=== PATIENT | female | born 1945 | race Caucasian/White ===

== ENCOUNTER → 2018-10-27 13:23 | Outpatient (CLI) | payer MEDICARE, OTHER, SELFPAY | PROVIDERS: PCP Family Medicine; Visit Provider Family Medicine | DX: Z78.0 Asymptomatic menopausal state (principal); E07.9 Disorder of thyroid, unspecified; R29.890 Loss of height | CPT/HCPCS: 77080; 77081 ==

== ENCOUNTER → 2018-12-31 15:38 | Outpatient (CLI) | payer MEDICARE, OTHER, SELFPAY ==
--- NOTE | 2018-12-31 | DI.RAD.S_ITS ---
PROCEDURE: XR LUMBAR SPINE 2-3V INDICATIONS: LOW BACK PAIN TECHNIQUE: 3 views of the lumbar spine were acquired. COMPARISON: None. FINDINGS: Bones: 5 [id number] vertebrae are present. There is grade 1 anterolisthesis of L4 on L5. Minimal retrolisthesis of L1 on L2 is also seen. Degenerative endplate changes and bilateral facet arthrosis throughout lumbar spine is noted most prominent at L4-5 and L5-S1 levels. No vertebral body compression fractures. No suspicious bony lesions. Soft tissues: Overlying bowel gas pattern is normal. No suspicious soft tissue calcifications. IMPRESSION: Degenerative disc disease throughout lumbar spine. Minimal retrolisthesis at L1-2 level and grade one anterolisthesis at L4-5 level. No acute compression fracture. Dictated by: Adeel Nino M.D. on 12/31/2018 at 18:03 Approved by: Adeel Nino M.D. on 12/31/2018 at 18:04
== END ==
PROVIDERS: PCP Family Medicine; Visit Provider Family Medicine
DX: M54.5 Low back pain (principal); M51.36 Other intervertebral disc degeneration, lumbar region; M43.16 Spondylolisthesis, lumbar region
CPT/HCPCS: 72100

== ENCOUNTER → 2019-01-08 15:10 | Outpatient (CLI) | payer MEDICARE, OTHER, SELFPAY ==
--- NOTE | 2019-01-08 15:12 | DI.RAD.S_ITS ---
PROCEDURE: XR HAND RT MIN 3V INDICATIONS: Fall, swelling, pain over distal metatarsals and PIP TECHNIQUE: 3 views of the hand(s) acquired. COMPARISON: None. FINDINGS: Bones: No fractures or dislocations. Carpal bones are normally aligned. No suspicious bony lesions. Mild degenerative arthritis involving the triscaphe joint as well as the first MCP, first IP, and second and third DIP joints. Soft tissues: No suspicious soft tissue calcifications. IMPRESSION: No evidence acute bony abnormality of the right hand Dictated by: Juwan Fong M.D. on 01/08/2019 at 15:32 Approved by: Juwan Fong M.D. on 01/08/2019 at 15:34
== END ==
PROVIDERS: PCP Family Medicine; Visit Provider Physician Assistant
DX: S60.221A Contusion of right hand, initial encounter (principal); M79.89 Other specified soft tissue disorders; W19.XXXA Unspecified fall, initial encounter
CPT/HCPCS: 73130

== ENCOUNTER → 2019-03-09 16:16 | Outpatient (CLI) | payer MEDICARE, OTHER, SELFPAY ==
--- NOTE | 2019-03-09 | DI.RAD.S_ITS ---
PROCEDURE: XR HIP W PEL IF DONE LT 2V INDICATIONS: LEFT HIP PAIN TECHNIQUE: AP pelvis with lateral view(s) of the left hip(s). COMPARISON: [facility], XR PELVIS W LATERAL HIP RT, 02/22/2016, 15:13. [facility], CR, PELVIS 1 OR 2 VIEWS, 02/09/2016, 14:43. FINDINGS: Bones: No fractures or dislocations. Pelvic ring appears intact. No suspicious bony lesions. There is a severe left hip joint degeneration. Note is made of right hip arthroplasty with prosthesis in anatomic alignment. Soft tissues: The visualized bowel gas pattern is normal. No suspicious soft tissue calcifications. IMPRESSION: Severe left hip joint degeneration secondary to osteoarthritis. Dictated by: Camila Tovar M.D. on 03/09/2019 at 18:38 Approved by: Camila Tovar M.D. on 03/09/2019 at 18:40
== END ==
PROVIDERS: PCP Family Medicine; Visit Provider Family Medicine
DX: M25.552 Pain in left hip (principal); M16.12 Unilateral primary osteoarthritis, left hip
CPT/HCPCS: 73502

== ENCOUNTER → 2019-09-09 11:13 | Outpatient (CLI) | payer MEDICARE, OTHER, SELFPAY ==
[2019-09-09 11:57] LABS: Bacteria Urine None Seen
[2019-09-09 13:20] LABS: Appearance Urine UA CLEAR; Bilirubin Urine UA NEGATIVE (NEGATIVE); Color Urine UA YELLOW; Glucose Urine UA NEGATIVE (Negative); Ketones Urine UA NEGATIVE (NEGATIVE); Leukocyte Esterase Urine UA NEGATIVE (NEGATIVE); Nitrite Urine UA NEGATIVE (Negative); Occult Blood Urine UA 1+ (Negative); Protein Urine UA NEGATIVE (Negative); Specific Gravity Urine UA 1.015 (1.000-1.035); Urobilinogen Urine UA 0.2 E.U./dL (0.2)
[2019-09-09 13:29] LABS: Add Manual Diff / Slide Review NO; Basophils Absolute Auto 100 /uL (0-100); Basophils Percent Auto 0.8 % (0-2); Eosinophils Absolute Auto 100 /uL (0-450); Eosinophils Percent Auto 1.4 % (2-4); Hematocrit 43.2 % (36-46); Hemoglobin 14.7 g/dL (12.0-16.0); Lymphocytes Absolute Auto 2500 /uL (1100-4500); Lymphocytes Percent Auto 28.1 % (25-40); Mean Corpuscular HGB Conc 33.9 % (30-36); Mean Corpuscular Hemoglobin 28.4 PG (26-34); Mean Corpuscular Volume 83.7 fL (80-100); Monocytes Absolute Auto 800 /uL (0-900); Neutrophils Absolute Auto 5400 /uL (1500-7000); Neutrophils Percent Auto 60.7 % (50-75); Platelet Count 282 X10^3/uL (150-400); Red Blood Cell Count 5.16 X10^6/uL (4.0-5.2); Red Cell Distribution Width 15.3 % (11.6-14.8); White Blood Cell Count 8.9 X10^3/uL (4.5-11.0)
[2019-09-09 13:34] LABS: Hemoglobin A1C% w Est Avg Glu 6.1 % (4.0-6.0)
[2019-09-09 13:41] LABS: Culture Indicated Urine Cult Not Indicated; RBC Urine 1-5/HPF (0-5/HPF); Squamous Epithelial Cell Urine 0-1 /HPF (0-5/HPF); WBC Urine 0-1/HPF (0-5/HPF)
[2019-09-09 13:44] LABS: BUN Creatinine Ratio 30.9 (6-22); Blood Urea Nitrogen 21 mg/dL (7-17); Calcium 10.1 mg/dL (8.4-10.2); Carbon Dioxide 22 mmol/L (22-32); Chloride 105 mmol/L (98-107); Estimated Glomerular Filt Rate > 60.0 mL/min (>60); Glucose 102 mg/dL (80-110); HEMOLYSIS < 15 (0-50); Potassium 4.5 mmol/L (3.4-5.1); Sodium 138 mmol/L (137-145)
== END ==
PROVIDERS: PCP Family Medicine; Referring Provider Orthopaedic Surgery; Visit Provider Orthopaedic Surgery
DX: Z01.818 Encounter for other preprocedural examination (principal); Z01.812 Encounter for preprocedural laboratory examination; R73.9 Hyperglycemia, unspecified; N39.0 Urinary tract infection, site not specified
CPT/HCPCS: 36415; 80048; 81001; 83036; 85025; 93005

== ENCOUNTER → 2019-10-12 10:44 | Outpatient (CLI) | payer MEDICARE, OTHER, SELFPAY ==
[2019-10-14 00:19] LABS: COVID19 Sendout Not Detected (Not Detect)
== END ==
PROVIDERS: PCP Family Medicine; Visit Provider Nurse Practitioner
DX: Z01.812 Encounter for preprocedural laboratory examination (principal)
CPT/HCPCS: 87635

== ENCOUNTER 2019-10-15 06:11 | Day surgery (SDC) | payer MEDICARE, OTHER, SELFPAY ==
[2019-10-08 09:38] VITALS: BMI 35.0
[2019-10-15] VITALS (16 sets, daily range): BP systolic 112–171; BP diastolic 57–92; PULSE 65–79; RESP 8–17; TEMP 36.1–37.1; O2SAT 90–100; BMI 34.3
--- NOTE | 2019-10-15 | DI.RAD.S_ITS ---
PROCEDURE: XR PELVIS 1-2V INDICATIONS: left total hip inter op TECHNIQUE: Intra-operative view of the pelvis and hip acquired. COMPARISON: [facility], , PELVIS 1 OR 2 VIEWS, 02/09/2016, 14:43. FINDINGS: Bones: Intraoperative devices prior to placement of arthroplasty prostheses are in expected positions. No fractures or suspicious bony lesions. Soft tissues: Overlying surgical retractors are present, along with other intraoperative changes. IMPRESSION: Normal alignment established in preparation for placement of final components of left total hip arthroplasty. Dictated by: Emery Levi M.D. on 10/15/2019 at 10:28 Approved by: Emery Levi M.D. on 10/15/2019 at 10:28
--- NOTE | 2019-10-15 06:34 | DI.RAD.S_ITS ---
PROCEDURE: XR HIP W PEL IF DONE LT 2V INDICATIONS: surgery portable TECHNIQUE: AP pelvis and lateral view of the left hip acquired. COMPARISON: [facility], CR, XR PELVIS WITH BILATERAL LATERAL HIPS, 09/09/2019, 10:17. [facility], CR, XR PELVIS 1-2V, 10/15/2019, 9:05. [facility], CR, XR HIP W PEL IF DONE LT 2V, 03/09/2019, 16:26. FINDINGS: Bones: Patient is status post left hip arthroplasty, with hardware components in expected positions. The hip joint appears congruent. The visualized bony structures appear intact. Note is made of prior right hip arthroplasty. Soft tissues: Overlying postoperative changes are noted. No suspicious soft tissue densities. IMPRESSION: Left hip arthroplasty with prosthesis in anatomic alignment. Dictated by: Camila Tovar M.D. on 10/15/2019 at 11:04 Approved by: Camila Tovar M.D. on 10/15/2019 at 11:05
[2019-10-15] MEDS: VANCOMYCIN 1,000 MG/200 ML PIGGYBACK 200 MG IV (07:07)
[2019-10-15] MEDS: CELECOXIB 200 MG CAPSULE PO (07:08)
[2019-10-15] MEDS: ACETAMINOPHEN 325 MG TABLET 975 MG PO (07:08)
--- NOTE | 2019-10-15 07:33 | P.OP_ITS ---
Operative Date/Time/Diagnoses Date of procedure: 10/15/19 Time of procedure: 07:59 Pre-op diagnosis: left hip OA Post-op diagnosis: same Procedure & Clinicians Procedure: Left total hip arthroplasty posterior approach Same procedure as scheduled: Yes Indications: The patient has had progressively worsening left hip pain with radiographic changes consistent with arthritis. Non-operative management has failed and the patient has requested total hip replacement. The risks, benefits and alternatives to surgery were discussed with the patient prior to proceeding. Risks discussed included, but were not limited to, failure to relieve pain, leg length discrepancy, dislocation, stiffness, infection, nerve damage, deep venous thrombosis, pulmonary embolism, stroke, coma, heart attack, permanent paralysis and , as well as the potential need for eventual revision of the prosthetic. Surgeon: Pushpa Montoya Agricultural Service Technician: Brady Cordova Anesthesia Type: General and Spinal Operative Notes Findings: Severe left hip osteoarthritis, good stability Closure Type: primary Specimen(s): none sent Prosthetic devices, grafts, tissues, transplants, or devices: Montoya and Nephew 50 mm R3 cup, size 5 standard offset anthology, +0 x 32 mm Oxinium head,one 15 mm screw Applied: drain(s) Estimated Blood Loss (mL): 250 Blood products transfused: none Procedure in detail: The patient was seen in the pre-operative area, where the patient identified the left hip as the operative site and this was marked with my initials. The patient received pre-operative antibiotics and was taken to the operating room and placed on the operative table in the right lateral decubitus position after satisfactory anesthesia. A registered phlebotomist part time out? was performed. The left leg was prepared from the ankle to the iliac crest with ChloroPrep in the usual fashion and draped through sterile drapes. The hip was approached through an approximately 20 cm incision centered over the greater trochanter and curving gently posteriorly as it went proximally. This was carried sharply to the fascia cuauhtemoc, which was divided and retracted with a self retaining retractor. The trochanteric bursa was excised with care being ta esha to avoid the sciatic nerve, which was identified and protected throughout the case. The short external rotators were incised and the capsulomuscular flap was raised and tagged for later repair. The hip was dislocated, and a femoral neck osteotomy performed approximately 15 mm above the lesser trochanter. Retractors were placed around the femur. The canal was opened with a box cutting osteotome, followed by a T handled reamer and a lateralizing reamer. The chili pepper broach was then used, followed by sequential broaching until there was good stability of the broach in the femur. Retractors were placed to expose the acetabulum. The labrum and central soft tissues were removed. Reaming was performed initially going up in 2 mm increments, then 1 mm increments until good bite was obtained with an odd sized reamer. The cup 1 mm larger than the last reamer was then inserted using the appropriate anteversion guides. It was further stabilized with a single 15 mm 6.5 mm screw. A trial neutral liner was placed. The broach was placed in the canal. A trial head and neck were then placed and the hip relocated and checked for leg length and stability. An intraoperative film confirmed the component position and no evidence of fracture. The patient was stable in the position of sleep, of squatting, and could be put through a range of motion with 45 degrees internal rotation without dislocation. At 90 degrees flexion, internal rotation to 70 ? was possible before dislocation. This was felt to be satisfactory and the appropriate components were opened, and the trials were removed. The acetabular liner was impacted into position. The final stem was then impacted into the prepared femoral canal. A brief Betadine soak was performed while trialing with head options. The hip was meticulously irrigated with normal saline. Finally the femoral head was impacted onto the stem. The acetabulum was cleared of all material and the hip relocated one final time. The capsulomuscular flap was then repaired to the greater trochanter though an awl hole using the tag sutures. The short external rotators were repaired with a nonabsorbable suture. A deep drain was placed and brought out anteriorly. The fascia cuauhtemoc was closed with Vicryl. The subcutaneous layer was closed with barbed sutures and SteriStrips. An Aquacel Ag dressing was applied and the patient was taken to recovery having tolerated the procedure well. Complications: none Post-operative Condition: stable Disposition: Acute Care Plan for aftercare: The patient will be maintained on a standard total hip replacement protocol with weight bearing as tolerated and posterior hip precautions. The patient will receive Aspirin and sequential compression devices for DVT prophylaxis. The patient will be discharged home when safe for the home environment.
--- NOTE | 2019-10-15 07:33 | PM.PREOP ---
Pre-operative Note COVID-19 COVID-19 status: Negative Interval Note History & Physical reviewed/Exam performed by Physician: Yes Changes to H&P: No
[2019-10-15] MEDS: LACTATED RINGERS 1,000 ML 42 ML IV ×2 (07:41→09:08)
[2019-10-15] MEDS: TRANEXAMIC ACID 1,000 MG VIAL 1000 MG INJ ×2 (08:00→09:48)
[2019-10-15] MEDS: CLINDAMYCIN 900 MG/50 ML PIGGYBACK 50 MG IV (08:07)
--- NOTE | 2019-10-15 08:43 | SUR.OPER ---
Lateral on padded OR bed. Gel axillary roll. Arms secured on padded armboard with pillow supporting top arm. Padded hip positioner braces x4 - anterior and posterior chest and pelvis. Additional gel pad used anterior pelvis. Gel pad under bottom leg from knee to foot and secured with tape over sheet.
[2019-10-15] MEDS: BUPIVACAINE LIPOSOME 266 MG/20 ML VIAL INJ (08:48)
[2019-10-15] MEDS: BUPIVACAINE 0.25% W/ EPI 30 ML VIAL 60 ML INJ (08:49)
[2019-10-15] MEDS: EPINEPHrine 1 MG/ML IRR (08:50)
--- NOTE | 2019-10-15 11:08 | SUR.PHASEI ---
pt transferred to acute care floor in stable condition, vss. pt alert and talking to staff during transport. Bedside report given to Yannick Wilson RN upon arrival to room. Transferred care of pt to RAYMUNDO Wilson at that time.
--- NOTE | 2019-10-15 13:36 | PT.IIE ---
Current Diagnoses Unilateral primary osteoarthritis, left hip (10/15/19) Surgery Performed Operation Date: 10/15/19 07:45 Actual Procedures p Total Hip Arthroplasty(Left) - Pushpa Montoya MD Surgical History (Last Updated 10/08/19 @ 10:15 by Lulu Streeter RN) History of carpal tunnel surgery of right wrist (Acute 01/2016) History of total right hip arthroplasty (Acute 02/09/16) Hx of tonsillectomy (Acute) Medical History (Last Updated 10/08/19 @ 10:15 by Lulu Streeter RN) Anxiety (Acute) Depression (Acute) GERD (gastroesophageal reflux disease) (Acute) HLD (hyperlipidemia) (Acute) Pre-diabetes (Acute) Rheumatic fever (Acute) Physical Therapy Inpatient Evaluation/Re-Eval M1 PT/OT-IP Prior Functional Status Start: 10/15/19 11:49 Freq: NEEDED Status: Active Protocol: Document 10/15/19 13:10 AW (Rec: 10/15/19 13:35 AW [email or web address]) Medical Review Prior Functional Status Medical History Reviewed Yes Diet/Fluid Consistency Regular Communication WNL. Pt is an effective verbal communicator. Mobility and Gait Pt is an independent community ambulator who is able to walk up to 1 mile. Activities of Daily Living and IADL's Pt is mod I to dress herself with sock aid and grain shoveler. In the shower, she uses a shower stool to steady herself in standing. She drives and manages her own medications. Social History Household Members none Living Arrangements House Number of Floors (Floors) One Floor Number of Stairs To Enter/Railing? 3 SHYAM with no railing. Pt states she must descend 4 stairs into the garage with no railing in order to access her laundry. 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 Her daughter and sister have planned to coordinate care so that she will not be alone for at least the first week following discharge. M2 PT-IP Current Condition Start: 10/15/19 11:49 Freq: NEEDED Status: Active Protocol: Document 10/15/19 13:10 AW (Rec: 10/15/19 13:35 AW [email or web address]) Physical Therapy Current Condition Current Condition Evaluation Date 10/15/19 Treatment Diagnosis s/p L NANCY with posterior approach. Onset Date 10/15/19 Precautions Posterior Hip Precautions No Hip Flexion > 90 degrees,No Hip Internal Rotation,No Hip Adduction Weight Bearing Status Weight Bearing Status Weight Bear as Tolerated M3 PT-IP Subjective Start: 10/15/19 11:49 Freq: NEEDED Status: Active Protocol: Document 10/15/19 13:10 AW (Rec: 10/15/19 13:35 AW [email or web address]) Subjective Physical Therapy Visit Type Type Initial Evaluation Visit Start Time 12:29 Visit Stop Time 13:05 Total Visit Minutes 36 Number of ETHNOLOGY TEACHER Visits 0 Physical Therapy Visit Comments Patient Comments Pt would like to [place] [facility] Patient Goals Pt hopes to discharge to her home with family assisting. Therapy Pain Assessment Pain When Pain Assessed During Mobility Pain Present Pain Present Denied Pain M4 PT-IP Mobility and Gait Start: 10/15/19 11:49 Freq: NEEDED Status: Active Protocol: Document 10/15/19 13:10 AW (Rec: 10/15/19 13:35 AW [email or web address]) PT-Bed Mobility Assessment Supine to Sit Supine to Sit Minimal Assistance,1 Person Assistance Scooting Scooting to Edge of Bed Contact Guard Assistance PT-Transfer Assessment Sit to and From Stand Sit to and from Stand Minimal Assistance,1 Person Assistance,Use of Upper Extremities Equipment Transfer Assistive Device Gait Belt,Front Wheeled Walker Orthotic/Prosthetic Devices or Brace: No Transfers Transfer Destination Chair,Bedside Commode Transfer Technique pt ambulated with FWW Transfer Ability Level of Assist Contact Guard Assistance,Use of Upper Extremities Comments Mobility Comments BP in supine was 127/75. SpO2 94% on room air. With HOB flat , pt moved her legs to exit toward her left side and then required min A x 1 at her shoulders to assist to sitting while maintaining posterior precautions. She scooted toward EOB with CGA/tactile cues for upright trunk. Pt was able to sit EOB with and without UE support. BP after two minutes in sitting was 135 /77. Pt stood using FWW min A x 1 and verbal cues for placement of her LLE. She was able to shift weight side to side and to take small marching steps in place with minimal UE weightbearing on the walker. Pt step pivot transferred to the [facility] where she was able to void. She stood min A x 1 to complete her own pericare and then ambulated to the sink CGA. She was able to stand without countertop support to wash her hands. She then ambulated with FWW CGA to the chair where she sat without need for verbal cues while maintaining posterior hip precautions. Pt was positioned in the chair with call light and all needs within reach. She verbalized agreement to use the call light for all mobility needs. Left pt with EXPLOSIVES ENGINEER. Gait Assessment Gait Gait Assistance Required: Contact Guard Assist Distance (Feet) 7 Able to Maintain Weight Bearing Status Yes During Gait Assistive Devices Assistive Device Gait Belt,Front Wheeled Walker Orthotic/Prosthetic Devices or Brace: No Gait Deviations General Gait Pattern Antalgic,Decreased Stride Length,Decreased Feet Clearance,Flexed Trunk,Step-to Gait Factors Limiting Gait Function Factors Limiting Gait Function Decreased Activity Tolerance, Decreased Sensation,Decreased Strength,Limited Range of Motion,Poor Balance Comments Gait Comments See mobility comments. Stair Climbing Assessment Comments Stair Climbing Comments Not assessed. PT-Balance Assessment Sitting Balance and Reactions Static Sitting Balance Ability Normal Dynamic Sitting Balance Ability Normal Standing Balance and Reactions Static Standing Balance Ability Good Dynamic Standing Balance Ability Good Device Used FWW Comments Other Balance Tests/Deviations/Treatment Pt appropriately used the FWW. : She was able to stand at the sink without leaning and without UE support to wash her hands. M5 PT-IP Objective Assessments Start: 10/15/19 11:49 Freq: NEEDED Status: Active Protocol: Document 10/15/19 13:10 AW (Rec: 10/15/19 13:35 AW [email or web address]) Orientation Orientation/Cognition Level of Alertness Alert Orientation Name,Day of Week,Place, Situation Language Function Ability No Deficits Noted Memory Description No Deficits Noted Gross Range of Motion Upper Extremity ROM Assessment Within Functional Limits Lower Extremity ROM Assessment Left Impaired Strength Lower Extremity Strength Assessment Left Impaired Hip 3/5 Knee 4-/5 Ankle 4+/5 Comments Strength Comments RLE grossly 4/5 Coordination Assessment Gross Coordination Gross Coordination WNL Sensation Assessment Sensation Gross Sensation Right LE Impaired,Left LE Impaired Light Touch Impaired Sensation Description Numbness,Tingling Comments Sensation Comments Pt reports chronic 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 Muscle Tone Muscle Tone WNL Yes M6 PT-IP Treatment Start: 10/15/19 11:49 Freq: NEEDED Status: Active Protocol: Document 10/15/19 13:10 AW (Rec: 10/15/19 13:35 AW [email or web address]) Physical Therapy Treatment Exercises Exercises Ankle Pumps,Gluteal Sets,Quad Sets,Heel Slides,Supine Hip Abduction Education Education Provided Precautions,Weight Bearing Status,Post-Op Packet,Safety Other Treatments Other Treatment Performed Provided education on role of PT, plan of care, weightbearing status, posterior hip precautions, and safe use of FWW. Also provided education on benefits of cryotherapy, encouraging the patient to use a heavy ice bag ~20 minutes hourly as tolerated. M7 PT-IP Assessment and Plan Start: 10/15/19 11:49 Freq: NEEDED Status: Active Protocol: Document 10/15/19 13:10 AW (Rec: 10/15/19 13:35 AW [email or web address]) PT Summary Assessment and Plan Potential Rehabilitation Potential Good Status of Condition at Evaluation Evolving Summary Impairments Pain,ROM,Strength,Balance, Sensation,Bed Mobility, Transfers,Gait,Activity Tolerance Assessment Summary Donna is a 74 yo woman seen for PT evaluation on POD0 following L NANCY with posterior approach. She is an independent community ambulator at baseline and lives alone. She has arranged for her daughter and her sister to provide live-in assist for at least one week at time of discharge. On evaluation, pt required CGA or min assist for all mobility. PT anticipates she will progress and meet the goals of this plan of care for safe discharge to home with family assist as planned. Goals Bed Mobility Goal Standby Assistance Transfer Goal Standby Assistance,Four Wheeled Walker Gait Goal Standby Assistance,Front Wheel Walker Gait Distance 200 Other Goals - up/down 3 steps with SPC R hand and ASBESTOS BRAKE LINING FINISHER HELPER/min A on left side Days to Meet Goals 3 Frequency of Treatment Frequency Of Treatment Twice a Day Treatment Plan Physical Therapy Treatment Plan Bed Mobility Training,Transfer Training,Gait Training, Therapeutic Exercise,Balance Retraining,Post Op Education, Discharge Planning,Hot or Cold Pack Other Recommendations and Next Treatment ther ex, bed mobility, Focus progress gait training with FWW, stairs when appropriate Recommendations To Nursing Amount of Assist Needed 1 Person Assist Discharge Recommendations PT Discharge Recommendations Home with Assistance, Outpatient PT Transportation Needs at Discharge Private Vehicle
--- NOTE | 2019-10-15 14:06 | CM.DANOTE ---
DCP: Case received, EMR reviewed and met with patient. Introduced self and role. Was able to meet with patient in her room and obtain information regarding her baseline activity level prior to surgery, and her living situation. DCP assessment completed with information currently available. Patient is a 74 year old female who admitted early this morning to the care of the orthopedic team. PCP: Dr. Brabosa. Payer: confirmed: Medicare/[employer]. Patient came to the hospital for a surgical procedure. She had left total hip arthroplasty. Patient has history of osteoarthritis to her left hip. P.T. had been in speaking to patient before this shoe parts caser entered the room. Met with patient in her room. She was sitting up in her recliner next to her bed. She is alert and oriented, pleasant. She resides in [place], and lives alone. She is independent at baseline, driving. She has a cane that she uses on occasion, and also purchased a FWW. She has 3 steps going into the house. Patient plans to have her daughter, Debi Buck, stay with her for a week. She is from the [facility]. Patient mentioned that she also has friends available, and good neighbors. P: DCP to continue to follow. Patient should be able to go home when she is medically stable, and cleared by P.T. Beena Stewart RN/Communications Director
[2019-10-15] MEDS: LACTATED RINGERS 1,000 ML 125 ML IV ×2 (15:11→23:18)
[2019-10-15] MEDS: ONDANSETRON 4 MG/2 ML INJ IV (15:13)
[2019-10-15] MEDS: ACETAMINOPHEN 325 MG TABLET 650 MG PO ×2 (16:15→20:29)
[2019-10-15] MEDS: IBUPROFEN 400 MG TABLET PO ×2 (16:16→20:32)
[2019-10-15] MEDS: ASPIRIN EC 81 MG TABLET PO (20:29)
[2019-10-15] MEDS: DOCUSATE 100 MG CAPSULE PO (20:30)
[2019-10-15] MEDS: PRAVASTATIN 20 MG TABLET 10 MG PO (20:30)
[2019-10-15] MEDS: METOPROLOL IR 50 MG TABLET PO (20:32)
--- NOTE | 2019-10-15 22:19 | PC.NURSE ---
93% RA when awake, 87%RA while asleep, 1L NC 94%. 1PA-fww to the BR. pain controlled with advil and tylenol. call light in reach. bed alarm active. JEAN PIERRE drain blinking green. HV compressed and intact 50cc out.
[2019-10-16 00:30] VITALS: BP 145/90; PULSE 79; RESP 16; TEMP 36.1; O2SAT 95
[2019-10-16] MEDS: IBUPROFEN 400 MG TABLET PO ×3 (00:35→09:28)
--- NOTE | 2019-10-16 00:58 | PC.NURSE ---
Patient seen and assessed at 2344. Is alert and oriented. Breath sounds CTA with RA sat of 97%. HRR; BP still elevated at 142/91 but improved with use of Losartan. Denies nausea. BT present but denies flatus; has own bowel regimen. Condom catheter intact; urine is clear yellow. Is feeling much improved over last night and denies any pain/myalgias and is now able to move himself in bed again. 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 Blister noted just to left of coccyx, stage 2 pressure injury to left ischium, scabbed abrasions to bilateral LE and chronic wound on lateral left ankle which is covered with a dressing; CDI. Continues to refuse SCD's. Fall risk score is moderate; bed alarm is activated.
--- NOTE | 2019-10-16 01:59 | PC.NURSE ---
Patient seen and assessed at 0043. Is alert and oriented. Breath sounds CTA. Evening RN reports patient desats when asleep so is currently on oxygen at 1L/min per NC with sat of 95%. HRR. BP elevated from previous readings at 145/90. Denies nausea. BT hypoactive and has not yet passed flatus. Voiding; denies dysuria, frequency or urgency. Is able to turn self in bed. Up to bathroom with walker and 1 assist; needs some reminders for posterior hip precautions but overall is doing well. Did need assistance to get legs back into bed. CMS is intact except for chronic bilateral foot neuropathy. JEAN PIERRE dressing to left hip is CDI; hemovac is intact and compressed. Complains of 2/10 pressure pain with movement; medicated with scheduled Ibuprofen and ice applied for comfort. Wearing bilateral calf SCD's. Fall risk score is moderate and bed alarm is activated.
[2019-10-16 05:00] VITALS: BP 136/75; PULSE 72; RESP 16; TEMP 35.9; O2SAT 93
[2019-10-16 06:06] LABS: Hematocrit 33.6 % (36-46); Hemoglobin 11.1 g/dL (12.0-16.0)
[2019-10-16] MEDS: VANCOMYCIN 1,000 MG/200 ML PIGGYBACK 200 MG IV (06:06)
[2019-10-16] MEDS: LEVOTHYROXINE 50 MCG TABLET PO (06:16)
[2019-10-16 07:18] VITALS: BP 126/74; PULSE 73; RESP 16; TEMP 36.6; O2SAT 92
--- NOTE | 2019-10-16 08:09 | P.PN_ITS ---
Subjective Subjective Date Patient Seen: 10/16/19 Time Patient Seen: 08:09 Interval history: Patient was taken to the operating room she underwent left total hip arthroplasty through a posterior approach. She did well postoperatively. She notes minimal pain she is using only Tylenol and ibuprofen for pain. She has been up with physical therapy. She denies any nausea currently. Exam Vital Signs (past 8 hours): - 10/16/19 00:30 10/16/19 05:00 Temperature 96.9 F L 96.6 F L Pulse Rate 79 72 Respiratory Rate 16 16 Blood Pressure 145/90 H 136/75 Pulse Oximetry 95 93 Oxygen Delivery Method Nasal Cannula Oxygen Flow Rate 1 Narrative Exam Narrative: She is alert she is oriented she is sitting in a chair, her dressings intact, she is able to fire toe flexors and extensors calfs are soft bilaterally and her dressing is dry. She is neurologically intact distally, minimal pain with range of motion Objective Labs Result Diagrams: 10/16/19 05:55 Labs: Laboratory Results - last 24 hr 10/16/19 05:55 Hgb 11.1 L Hct 33.6 L Assessment & Plan Assessment & Plan narrative: Doing well status post a left total hip arthropla sty. Plan is to discharge to home and do outpatient physical therapy. Quality VTE Deep Vein Thrombosis/Pulmonary Embolism Present on Admission: No
--- NOTE | 2019-10-16 09:14 | CM.DPC ---
Discharge Planning/Care Management CM Discharge Assessment Start: 10/15/19 14:03 Freq: Status: Active Protocol: Document 10/15/19 14:04 (Rec: 10/15/19 14:13 [id number]) Discharge Planning Assessment Advance Directives? No History Provided By Medical Record Prior Living Arrangements House Household Members none Type of transporation used prior to Drives own vehicle admit Independent with ADL's Yes Is patient alert and oriented? Yes Caregiver for Another No DME Already Rented / Owned FWW / Walker,Cane Barriers to Discharge No Discharge Plan Home Transportation Arrangement Family Referrals Initiated None needed Whiteboard Updated in Patient Room with Yes name and ext. # of Limnology Teacher Review Status In Process Next Review Type Continued Stay Review 10/15/19 14:06 CM Disch. Assessment Note by Beena Stewart DCP: Case received, EMR reviewed and met with patient. Introduced self and role. Was able to meet with patient in her room and obtain information regarding her baseline activity level prior to surgery, and her living situation. DCP assessment completed with information currently available. Patient is a 74 year old female who admitted early this morning to the care of the orthopedic team. PCP: Dr. Barbosa. Payer: confirmed: Medicare/[employer]. Patient came to the hospital for a surgical procedure. She had left total hip arthroplasty. Patient has history of osteoarthritis to her left hip. P.T. had been in speaking to patient before this protective services case worker entered the room. Met with patient in her room. She was sitting up in her recliner next to her bed. She is alert and oriented, pleasant. She resides in [place], and lives alone. She is independent at baseline, driving. She has a cane that she uses on occasion, and also purchased a FWW. She has 3 steps going into the house. Patient plans to have her daughter, Debi Buck, stay with her for a week. She is from the [facility]. Patient mentioned that she also has friends available, and good neighbors. P: DCP to continue to follow. Patient should be able to go home when she is medically stable, and cleared by P.T. Beena Stewart RN/Fruit Room Hand Initialized on 10/15/19 14:06 - END OF NOTE Pre-Anesthesia Assessment Start: 10/08/19 09:38 Freq: Status: Complete Protocol: Document 10/08/19 09:38 [facility] (Rec: 10/08/19 10:34 [email or web address] [id number]) Pre-Anesthesia Assessment Patient Information Reviewed Via Phone Assessment Assessment Completed With Patient Diagnostic Results BMP/CMP,CBC,Urinalysis Comment Labs/EKG @ 09/09/19 COVID scheduled @ 10/12/19 Primary Care Provider Marty Barbosa Seen Specialist in Last 12 Months Yes Specialist Seen Orthopedist Primary Language [place] Island[place] Brusher Warp Required No Height 162.56 cm Weight 92.533 kg Body Mass Index (BMI) 35.0 Hearing Ability Normal Visual Assist Glasses Dentition Type Teeth, Natural Present,Teeth, Missing Barriers to Learning None Other Aids No Hx Anesthesia Reactions No Hx Family Anesthesia Reaction Yes: Daughter PONV Hx Malignant Hyperthermia No Hx Blood Transfusions Yes: r/t vaginal delivery/ hemorrhage 1976 Hx Blood Transfusion Reaction No Anesthesia Review Requested No alcohol intake current Alcohol Intake Frequency Other: Occasional Smoking Status Never smoker Substance Use Type does not use Pain Present Pain Reported Musculoskeletal Symptoms Abnormal Gait,Back Pain, Difficulty Walking,Joint Pain, Muscle Spasms History of Falling (Recent or History of Yes ) Patient is completely paralyzed or No completely immobile Prosthesis or Orthotic Device Cane Mental Status Oriented to own ability Comment Cane with uneven ground Is patient on oxygen? No Does patient have DOLAN/SOB No Hx Sleep Apnea No Currently Taking a Beta Lucius Yes: Metoprolol Can You Climb a Flight of Stairs Without Yes SOB Hx Chest Pain Yes: Many years ago, no CP since Hx SOB No Hx Syncope or Dizziness No Anti-Coagulant Therapy No Has a Naprapath No Cardiac Testing No Hx Pacemaker/ICD No Pacemaker Rep Required? No Cardiac Clearance Received Not Applicable Diet Type At Home Regular dysphagia No Gastrointestinal Symptoms Constipation,Reflux Bladder Pattern Incontinent, Stress,Nocturia Urinary Catheter Present No Hx Urinary Self Catheterization No Diabetes pre-cancer HgbA1C 6.1 Date 09/09/19 Patient No Lactating No Hx Drug Resistant Organism No Presence of External or Internal Medical Yes: Right hip prosthesis Devices Have you had any close contact with No someone diagnosed with COVID-19? Evaluation/Screening for possible COVID- Yes 19 infection completed? Marital Status Lives With none Prior Living Arrangements House Number of Floors (Floors) One Floor Number of Stairs To Enter/Railing? 3 Support System Child/Children Does the Patient Have Assistance After Yes: Daughter will stay w/pt Surgery to assist @ [place] Patient Discharge Plan Description Return Home Comment Pt advised overnight length of stay per surgeon Feels Safe in Current Environment Yes Been Physically Hurt or Threatened By a No Person in Current Environment Do you have thoughts of harming yourself None or others? Are you currently considering suicide? No Do you have a plan to hurt yourself or No Plan others? Do You Have Any Spiritual Beliefs That No May Affect Your HC Choices? Do You Have Any Cultural Practices That No May Affect Your HC Choices? Comment Gnosticism Who Can We Speak to About Patient's Care Family, friends Identifying Code for Release of Patient Declines to issue Information Health Care Proxy/Next of Kin Debi KristieCiro thorneon ( daughters) Health Care Proxy Phone Number Debi: [phone] Kristie: [phone] [place]: [phone] Emergency Contact Name Kristie Carrera Sharon ( daughters) Emergency Contact Phone Number Debi: [phone] Kristie: [phone] [place]: Advance Directives? No Power of Shellfish Harvester Yes Power of Shellfish Harvester Name Kristie Carrera Sharon ( daughters) Power of Shellfish Harvester Phone Number Debi: [phone] Kristie: [phone] [place]: PAC Instructions Do not shave/clip surgical site,Durable medical equipment ,Medications to take/avoid, Nasal antibiotic,No ETOH/ petroleum product on skin DOS, NPO,Post-op transportation, Sensory aids,Sturdy shoes/ comfortable clothes,Do not bring valuables and remove jewelry
--- NOTE | 2019-10-16 09:14 | CM.DPC ---
DCP: continued: Case received, EMR reviewed, d/c to home setting noted. Checked in with pt. She reports feeling comfortable going home today with her sister and daughter. They will be tag-teaming to help me out. She has outpt PT set up at [facility]. P: is for home after another PT session this morning.
[2019-10-16] MEDS: CHOLECALCIFEROL (VITAMIN D3) 1,000 UNIT TABLET 3000 UNIT PO (09:28)
[2019-10-16] MEDS: ASPIRIN EC 81 MG TABLET PO (09:28)
[2019-10-16] MEDS: ACETAMINOPHEN 325 MG TABLET 650 MG PO (09:29)
[2019-10-16] MEDS: METOPROLOL IR 50 MG TABLET PO (09:29)
[2019-10-16] MEDS: DOCUSATE 100 MG CAPSULE PO (09:30)
[2019-10-16] MEDS: FISH OIL 1,000 MG CAPSULE 1000 MG PO (09:30)
[2019-10-16] MEDS: MULTIVITAMIN 1 TABLET 1 TAB PO (09:30)
[2019-10-16] MEDS: AMLODIPINE 5 MG TABLET PO (09:30)
[2019-10-16] MEDS: CITALOPRAM 10 MG TABLET PO (09:30)
[2019-10-16 11:30] VITALS: BP 100/75; PULSE 69; RESP 16; TEMP 37.1; O2SAT 92
--- NOTE | 2019-10-16 12:11 | PT.IPTN ---
Current Diagnoses Unilateral primary osteoarthritis, left hip (10/15/19) Surgery Performed Operation Date: 10/15/19 07:45 Actual Procedures p Total Hip Arthroplasty(Left) - Pushpa Montoya MD Physical Therapy Treatment Note M2 PT-IP Current Condition Start: 10/15/19 11:49 Freq: NEEDED Status: Discharge Protocol: Document 10/15/19 13:10 AW (Rec: 10/15/19 13:35 AW [id number]) Physical Therapy Current Condition Current Condition Evaluation Date 10/15/19 Treatment Diagnosis s/p L NANCY with posterior approach. Onset Date 10/15/19 Precautions Posterior Hip Precautions No Hip Flexion > 90 degrees,No Hip Internal Rotation,No Hip Adduction Weight Bearing Status Weight Bearing Status Weight Bear as Tolerated M3 PT-IP Subjective Start: 10/15/19 11:49 Freq: NEEDED Status: Discharge Protocol: Document 10/16/19 10:05 [place] (Rec: 10/16/19 13:23 KS [id number]) Subjective Physical Therapy Visit Type Type Treatment Note Visit Start Time 10:05 Visit Stop Time 12:11 Total Visit Minutes 37 Notes Split treatment, 10:05-10:36, 12:05-12:11 Number of ENERGY ASSISTANT Visits 1 Physical Therapy Visit Comments Patient Goals Pt hopes to discharge to her home with family assisting. Therapy Pain Assessment Pain When Pain Assessed During Mobility Pain Present Pain Present Pain Reported Location Left Hip Intensity 4 Scale Used Numeric (0 - 10) Description Aching,Tightness Pain Management Techniques Re-positioning M4 PT-IP Mobility and Gait Start: 10/15/19 11:49 Freq: NEEDED Status: Discharge Protocol: Document 10/16/19 10:05 KS (Rec: 10/16/19 13:23 KS [id number]) PT-Bed Mobility Assessment Supine to Sit Supine to Sit Standby Assistance,1 Person Assistance Sit to Supine Sit to Supine Standby Assistance,1 Person Assistance Scooting Scooting to Edge of Bed Contact Guard Assistance PT-Transfer Assessment Sit to and From Stand Sit to and from Stand Standby Assistance,Contact Guard Assistance,1 Person Assistance,Use of Upper Extremities Equipment Transfer Assistive Device Gait Belt,Front Wheeled Walker Orthotic/Prosthetic Devices or Brace: No Transfers Transfer Destination Bed,Chair,Toilet Transfer Technique pt ambulated with FWW Transfer Ability Level of Assist Standby Assistance,Contact Guard Assistance,Use of Upper Extremities Comments Mobility Comments Pt was in chair upon arrival from therapy and able to recall all precautions. Pt SBA for scooting to edge of chair and CGA for sit<>stand w/ FWW . Pt then ambulated to bed and performed stand<>sit<>supine, repositioning in bed and sup< >sit<>stand w/ FWW all SBA. Pt then ambulated to stairs ~30 ft and performed 3 steps w/ SPC. Pt required PRODUCE RUNNER for descent for balance. Pt then ambulated ~250 ft w/ FWW and CGA and cues for equal step length. She demonstrated good posture and safe use of FWW. Pt returned to room and used toilet SBA and then returned to chair SBA. In second part of treatment, pts daughter was present to complete caregiver training on stairs. Pt completed 3 steps x2 w/ ENERGY ASSISTANT assist/demonstration first set then CGA and PRODUCE RUNNER provided by daughter second set. Pt and daughter state they both feel safe to complete stairs at home. Pt left in room w/ all needs in reach. Gait Assessment Gait Gait Assistance Required: Standby Assistance,Contact Guard Assist,1 Person Assist Distance (Feet) 280 Able to Maintain Weight Bearing Status Yes During Gait Assistive Devices Assistive Device Gait Belt,Front Wheeled Walker Orthotic/Prosthetic Devices or Brace: No Gait Deviations General Gait Pattern Antalgic,Decreased Stride Length,Decreased Feet Clearance Factors Limiting Gait Function Factors Limiting Gait Function Decreased Activity Tolerance, Decreased Sensation,Decreased Strength,Limited Range of Motion,Poor Balance Comments Gait Comments See mobility comments. Stair Climbing Assessment Evaluation Level of Assist On Stairs Contact Guard Assistance,1 Person Assistance Devices Stair Climbing Assistive Devices Straight Cane Technique/Endurance Stair Climbing Direction Ascend and Descend Stair Climbing Technique Step to Step Number of Steps Climbed 3 Stair Climbing Set # Repetitions (reps) 3 Comments Stair Climbing Comments Pt completed total 3 sets of 3 steps w/ SPC and PRODUCE RUNNER, cues for sequencing and step to pattern. Please refer to mobility section for further details. PT-Balance Assessment Sitting Balance and Reactions Static Sitting Balance Ability Normal Dynamic Sitting Balance Ability Normal Standing Balance and Reactions Static Standing Balance Ability Good Dynamic Standing Balance Ability Good Device Used FWW M5 PT-IP Objective Assessments Start: 10/15/19 11:49 Freq: NEEDED Status: Discharge Protocol: Document 10/15/19 13:10 AW (Rec: 10/15/19 13:35 AW [id number]) Orientation Orientation/Cognition Level of Alertness Alert Orientation Name,Day of Week,Place, Situation Language Function Ability No Deficits Noted Memory Description No Deficits Noted Gross Range of Motion Upper Extremity ROM Assessment Within Functional Limits Lower Extremity ROM Assessment Left Impaired Strength Lower Extremity Strength Assessment Left Impaired Hip 3/5 Knee 4-/5 Ankle 4+/5 Comments Strength Comments RLE grossly 4/5 Coordination Assessment Gross Coordination Gross Coordination WNL Sensation Assessment Sensation Gross Sensation Right LE Impaired,Left LE Impaired Light Touch Impaired Sensation Description Numbness,Tingling Comments Sensation Comments Pt reports chronic 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 Muscle Tone Muscle Tone WNL Yes M6 PT-IP Treatment Start: 10/15/19 11:49 Freq: NEEDED Status: Discharge Protocol: Document 10/16/19 10:05 KS (Rec: 10/16/19 13:23 KS [id number]) Physical Therapy Treatment Education Education Provided Precautions,Weight Bearing Status,Safety Other Treatments Other Treatment Performed Completed caregiver traning w/ pts daughter. M7 PT-IP Assessment and Plan Start: 10/15/19 11:49 Freq: NEEDED Status: Discharge Protocol: Document 10/16/19 10:05 KS (Rec: 10/16/19 13:23 KS [id number]) PT Summary Assessment and Plan Potential Rehabilitation Potential Good Status of Condition at Evaluation Evolving Summary Impairments Pain,ROM,Strength,Balance, Sensation,Bed Mobility, Transfers,Gait,Activity Tolerance Progress Towards Goals Progressing Toward Goals Assessment Summary Pt is SBA for bed mobility and SBA and CGA for transfers and ambulation. Completed caregiver training w/ pt and pts daughter who was able to safely provided assistance to pt w/ stairs and ambulation. Pt is safe to return home w/ daughter and sister providing assistance and should attend outpatient therapy to regain strength and ROM. Goals Bed Mobility Goal Standby Assistance Transfer Goal Standby Assistance,Four Wheeled Walker Gait Goal Standby Assistance,Front Wheel Walker Gait Distance 200 Other Goals - up/down 3 steps with SPC R hand and PRODUCE RUNNER/min A on left side Days to Meet Goals 3 Frequency of Treatment Frequency Of Treatment Twice a Day Treatment Plan Physical Therapy Treatment Plan Bed Mobility Training,Transfer Training,Gait Training, Therapeutic Exercise,Balance Retraining,Post Op Education, Discharge Planning,Hot or Cold Pack Recommendations To Nursing Amount of Assist Needed 1 Person Assist Discharge Recommendations PT Discharge Recommendations Home with Assistance, Outpatient PT Transportation Needs at Discharge Private Vehicle
--- NOTE | 2019-10-16 12:43 | PC.NURSE ---
PATIENT CLEARED PHYSICAL THERAPY. DTR AT BEDSIDE FOR DC HM INSTRUCTIONS. SCRIPT TO PATIENT. PATIENT CONFIRMS UNDERSTANDING OF ALL INSTRUCTIONS. PATIENT LEFT VIA WC W/ BRIM IRONER HAND ESCORT AND ALL OF BELONGINGS IN NO S/SX'S OF DISTRESS.
== END 2019-10-16 12:44 | disposition home or self-care (01) ==
LOC: OR 06:13 → AC 06:14
PROVIDERS: PCP Family Medicine; Referring Provider Orthopaedic Surgery; Visit Provider Orthopaedic Surgery
PROC: 0SRB0JZ Replacement of Left Hip Joint with Synthetic Substitute, Open Approach (ICD-10-PCS; CPT 27130; principal; 2019-10-15 07:45)
DX: M16.12 Unilateral primary osteoarthritis, left hip (principal); E66.9 Obesity, unspecified; E03.9 Hypothyroidism, unspecified; I10 Essential (primary) hypertension; Z68.35 Body mass index [BMI] 35.0-35.9, adult
CPT/HCPCS: 27130; 36415; 72170; 73502; 76000; 85014; 85018; 97110; 97116; 97161; 97530; C1776; A9270; C9290; J0171; J2250; J2274; J2405; J3010

== ENCOUNTER → 2020-08-31 09:42 | Outpatient (CLI) | payer MEDICARE, OTHER, SELFPAY ==
[2019-10-15 14:43] VITALS: BMI 34.3
[2020-08-31 11:24] LABS: COVID19 -Nasal RAPID Negative (Negative)
== END ==
PROVIDERS: PCP Family Medicine; Visit Provider Physician Assistant
DX: Z20.822 Contact with and (suspected) exposure to COVID-19
CPT/HCPCS: 87635; C9803

== ENCOUNTER 2020-09-02 12:43 | Day surgery (SDC) | payer MEDICARE, OTHER, SELFPAY ==
[2019-10-15 14:43] VITALS: BMI 34.3
--- NOTE | 2020-09-02 12:21 | PM.HP.1 ---
History of Present Illness History of Present Illness Date Patient Seen: 09/02/20 Chief complaint: SDC Narrative: 74 year old female comes in today for consideration of a screening colonoscopy. Two lifetime colonoscopies, both normal. Last colonoscopy in 2010 was normal except for few scattered diverticula in the colon. There have been no lower GI symptoms suggesting disease such as change in bowel habits, bleeding, abdominal pain or anemia. There's been no family history of colon cancer or colon polyps. Overall health issues have been stable, including no major cardiac events for at least 6 weeks. PCP: Dr. 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 Patient History Medical History (Updated 10/08/19 @ 10:15 by Lulu Streeter RN) Anxiety Depression GERD (gastroesophageal reflux disease) HLD (hyperlipidemia) Pre-diabetes Rheumatic fever Surgical History (Updated 10/08/19 @ 10:15 by Luul Streeter RN) History of carpal tunnel surgery of right wrist (01/2016) History of total right hip arthroplasty (02/09/16) Hx of tonsillectomy Family & Social History Social History: household members none Tobacco & Substance use: Smoking Status Never smoker alcohol intake current alcohol intake frequency holiday/special occasion Substance Use Type does not use Meds Home Medications and Allergies Home Medications Medication Instructions Recorded Confirmed Type calcium carbonate-vitamin D3 1 tab PO DAILY #0 09/24/12 09/02/20 History [Calcium 500 + D (D3)] cholecalciferol (vitamin D3) 3,000 unit PO DAILY #0 09/24/12 09/02/20 History [Vitamin D3] metoprolol tartrate [Lopressor] 50 mg PO BID #0 09/24/12 09/02/20 History multivitamin 1 cap PO DAILY #0 09/24/12 09/02/20 History omega 0-ouy-gic-fish oil [Fish Oil] 1 cap PO DAILY #0 09/24/12 09/02/20 History amlodipine 5 mg PO DAILY 10/08/19 09/02/20 History citalopram 10 mg PO DAILY 10/08/19 09/02/20 History levothyroxine 50 mcg PO DAILY 10/08/19 09/02/20 History pravastatin 10 mg PO BEDTIME 10/08/19 09/02/20 History trazodone 25 mg PO BEDTIME 10/08/19 09/02/20 History acetaminophen 650 mg PO TID #90 tab 10/16/19 09/02/20 Rx aspirin 81 mg PO BID #90 tab 10/16/19 09/02/20 Rx ibuprofen 400 mg PO Q4HR #60 tab 10/16/19 09/02/20 Rx Allergies Allergy/AdvReac Type Severity Reaction Status Date / Time amoxicillin [AMOXICILLIN] Allergy Severe FACIAL Verified 09/02/20 13:34 SWELLING adhesive tape [ADHESIVE TAPE] Allergy Intermediate RASH AFTER Verified 09/02/20 13:34 CUSHION FILLER USE bacitracin Allergy Intermediate BLISTERY Verified 09/02/20 13:34 [From NEOSPORIN RASH ([id number])] neomycin Allergy Intermediate BLISTERY Verified 09/02/20 13:34 [From NEOSPORIN RASH ([id number])] polymyxin B Allergy Intermediate BLISTERY Verified 09/02/20 13:34 [From NEOSPORIN RASH ([id number])] Review of Systems Review of Systems ROS: Yes All systems reviewed with the patient and are negative except as otherwise documented Exam Narrative Exam Narrative: GENERAL: Alert and oriented, appearing stated age and in no acute distress. HEENT: Head normocephalic/atraumatic. Pupils equal, round, and reactive to light and accomodation. Extraocular muscles intact. Tympanic membranes clear. Nasal mucosa moist, septum midline. Oral mucosa moist, no lesions. Neck soft and supple, no lymphadenopathy. LUNGS: Clear to ausculation bilaterally, no wheezes, rhonchi or rales. CV: Normal S1 and S2 with regular rate and rhythm, no audible murmurs, rubs or gallops. ABDOMEN: Soft, non-tender, non-distended, no organomegaly. Positive bowel sounds. EXTREMITIES: No clubbing, cyanosis, or edema. NEURO: Cranial nerves II through XII grossly intact, no focal deficits. PSYCH: Alert and oriented x 3. SKIN: No concerning lesions. Assessment & Plan Assessment & Plan narrative: 1. Screening for colon cancer Plan for colonoscopy. The nature and character of the procedure as well as anticipated results were discussed. The possibility of not completing the procedure was also discussed. Possible complications including aspiration pneumonia, bleeding, perforation and reaction to medications either for sedation or preparation and missed lesions were discussed. Questions were answered and proceeding to the colonoscopy was elected. Informed consent signed. I sincerely appreciate the referral allowing me to participate in this patient's care. Please contact me with any questions or concerns.
--- NOTE | 2020-09-02 12:25 | PM.OP.ENDO ---
Operative Date/Time/Diagnoses Date of procedure: 09/02/20 Procedure Notes SCOAP/Timeout: 2:03 p.m. Procedure in detail: ENDOSCOPIST: Cony Cleveland MD Sedation RN: Juanito Lees RN Sedation start time: 2:04 p.m. Sedation end time: 2:27 p.m. PROCEDURE: Colonoscopy INDICATIONS: 1. Screening for colon cancer MEDICATION: Levsin 0.125 mg sublingual, incremental doses of Versed and fentanyl until appropriate level sedation achieved. ASA CLASS: 2 CECAL WITHDRAWAL TIME: 7 minutes COMPLICATIONS: None. EXTENT OF PROCEDURE: Cecum. QUALITY OF PREP: Good with portions of liquid stool. PROCEDURE: Prior to insertion of the colonoscope, a digital rectal examination was accomplished with circumferential palpation of the distal rectal mucosa without significant findings being noted. The high-definition pediatric colonoscope was passed into the rectum in the usual fashion and advanced over to the cecum without difficulty. The ileocecal valve, appendiceal stoma, and medial wall all could be inspected and no abnormalities were seen. ASCENDING COLON: As the colonoscope was withdrawn, care was taken to expose and inspect the haustral folds and no abnormalities were seen. HEPATIC FLEXURE: Normal, no polyps, diverticula or other abnormalities. TRANSVERSE COLON: Normal, no polyps, diverticula or other abnormalities. DESCENDING COLON: Normal, no polyps, diverticula or other abnormalities. SIGMOID COLON: Minor diverticulosis, no, polyps or other abnormalities. RECTUM: Normal. J maneuver was produced. There was no significant perianal disease. The J maneuver was broken. The remainder of the rectum was inspected and there was no external hemorrhoid disease. The scope was withdrawn. IMPRESSION: 1. Normal colonoscopy 2. Minor diverticulosis, left-sided PLAN: 1. Secondary to patient's age and history of 3 normal colonoscopies, she can age out of colonoscopies at this point. The possibility of a missed lesion including a malignancy has been discussed with the patient previously. Potential alarm symptoms have been discussed and should be reported immediately.
[2020-09-02 13:44] VITALS: BMI 35.4
[2020-09-02 13:48] VITALS: BP 176/95; PULSE 76; RESP 14; TEMP 36.6; O2SAT 97
[2020-09-02] MEDS: MIDAZOLAM 5 MG/5 ML VIAL IV (14:15)
[2020-09-02] MEDS: fentaNYL 250 MCG/5 ML INJ IV (14:20)
[2020-09-02 14:33] VITALS: BP 144/81; PULSE 78; RESP 14; TEMP 37.4; O2SAT 95
[2020-09-02 14:38] VITALS: BP 125/67; PULSE 83; RESP 16; O2SAT 95
[2020-09-02 14:43] VITALS: BP 117/91; PULSE 78; RESP 12; O2SAT 95
[2020-09-02 14:48] VITALS: BP 139/72; PULSE 73; RESP 4; O2SAT 96
[2020-09-02 14:52] VITALS: BP 142/82; PULSE 73; RESP 14; TEMP 37; O2SAT 95
== END 2020-09-02 15:03 | disposition home or self-care (01) ==
PROVIDERS: PCP Family Medicine; Referring Provider Student in an Organized Health Care Education/Training Program; Visit Provider Student in an Organized Health Care Education/Training Program
PROC: 0DJD8ZZ Inspection of Lower Intestinal Tract, Via Natural or Artificial Opening Endoscopic (ICD-10-PCS; CPT 45378; principal; 2020-09-02 13:45)
DX: Z12.11 Encounter for screening for malignant neoplasm of colon (principal); F41.9 Anxiety disorder, unspecified; E03.9 Hypothyroidism, unspecified; E78.5 Hyperlipidemia, unspecified; I10 Essential (primary) hypertension; F32.9 Major depressive disorder, single episode, unspecified; K57.30 Diverticulosis of large intestine without perforation or abscess without bleeding
CPT/HCPCS: G0121; J2250; J3010

== ENCOUNTER → 2021-01-30 12:34 | Outpatient (CLI) | payer MEDICARE, OTHER, SELFPAY ==
[2019-10-15 14:43] VITALS: BMI 34.3
--- NOTE | 2021-01-30 | DI.RAD.S_ITS ---
PROCEDURE: XR CHEST 2V INDICATIONS: Dyspnea, unspecified TECHNIQUE: 2 views of the chest were acquired. COMPARISON: None. FINDINGS: Surgical changes and devices: None. Lungs and pleura: Lungs are clear. No pleural effusions or pneumothorax. Mediastinum: Mediastinal contours are normal. Heart size is normal. Bones and chest wall: No suspicious bony abnormalities. Soft tissues appear unremarkable. IMPRESSION: No acute cardiopulmonary process demonstrated radiographically. Dictated by: Nuno Ram M.D. on 01/30/2021 at 14:56 Approved by: Nuno Ram M.D. on 01/30/2021 at 14:56
== END ==
PROVIDERS: PCP Family Medicine; Referring Provider Family Medicine; Visit Provider Family Medicine
DX: R06.00 Dyspnea, unspecified (principal)
CPT/HCPCS: 71046

== ENCOUNTER → 2021-03-14 08:54 | Outpatient (CLI) | payer MEDICARE, OTHER, SELFPAY ==
[2019-10-15 14:43] VITALS: BMI 34.3
--- NOTE | 2021-03-14 09:37 | DI.ECHO.S_ITS ---
:Name: JAVIER RUBY Study Date: 03/14/2021 Height: 64 in : :[facility] ReadingLocation: Weight: 220 lb : : Gender: Female BSA: 2.0 m2 : :: 1945 Age: 75 yrs BP: 167/99 mmHg: :Reason For Study: DYSPNEA : :Ordering Physician: STONE : :EMMA Performed By: Emperatriz Mario : :Referring: EMMA RITTER : + + Interpretation Summary The ejection fraction is estimated to be 60-65%. Concentric remodeling of the LV Normal diastolic function The right ventricle is normal in size and function. Biatrial mild enlargement. No significant valvular disease. There is no pericardial effusion. Procedure: A two-dimensional transthoracic echocardiogram with color flow and Doppler was performed. The study quality was technically adequate. There is no prior echocardiogram noted for this patient. The patient was in sinus rhythm with heart rates between 65-70 bpm during the exam. Left Ventricle: The left ventricle is normal in size and wall thickness. The ejection fraction is estimated to be 60-65%. Left ventricular wall motion is normal. Diastolic parameters suggest probable normal left ventricular diastolic function and normal filling pressures. Right Ventricle: The right ventricle is normal in size and function. Atria: The left atrium is mildly dilated. The right atrium is mildly dilated. Mitral Valve: The mitral valve is normal in structure and function. There is trace mitral regurgitation. Aortic Valve: The aortic valve is not well visualized. There is no aortic valve stenosis. There is trace aortic regurgitation. Tricuspid Valve: The tricuspid valve is normal in structure and function. Right ventricular systolic pressure is estimated to be 28 mmHg plus the clinically estimated CVP which cannot be estimated on this exam. There is trace tricuspid regurgitation. Pulmonic Valve: The pulmonic valve leaflets are thin and pliable; valve motion is normal. There is trace pulmonic regurgitation. Great Vessels: The aortic root is normal size. The dimensions of the ascending aorta are normal. Mild atherosclerotic plaque(s) in the aortic arch. The inferior vena cava was not well visualized. Pericardium/ Pleura There is no pericardial effusion. There is no pleural effusion. MMode/2D Measurements & Calculations LVIDd: 4.0 cm LVOT diam: 2.0 cm LVIDs: 2.7 cm Ao root diam: 2.6 cm FS: 32.1 % asc Aorta Diam: 3.0 cm IVSd: 0.97 cm Ao Arch Diam (Prox Trans): 2.6 cm LVPWd: 0.87 cm LV rico. diameter/BSA (cm/m^2): 1.9 LV sys. diameter/BSA (cm/m^2): 1.3 LA A2 area: 21.8 cm2 RA long axis: 4.5 cm LA A4 area: 16.0 cm2 RA area: 11.4 cm2 LA length (vol): 4.4 cm RA vol: 24.1 ml LA vol: 66.5 ml RA : 11.9 ml/m2 LA vol index: 32.7 ml/m2 RVD1 (basal): 3.4 cm TAPSE: 2.1 cm Doppler Measurements & Calculations Ao V2 max: 152.9 cm/sec LVOT Max John: 114.6 cm/sec Ao V2 mean: 106.7 cm/sec LV V1 max P.3 mmHg Ao max P.3 mmHg LV V1 VTI: 28.0 cm Ao mean P.1 mmHg HERIBERTO(I,D): 2.7 cm2 Ao V2 VTI: 30.8 cm HERIBERTO(V,D): 2.3 cm2 sev ratio: 0.91 HERIBERTO indexed to BSA (cm^2/m^2): 1.3 MV E max john: 88.0 cm/sec TR max john: 267.5 cm/sec MV A max john: 104.6 cm/sec TR max P.6 mmHg MV E/A: 0.84 PA V2 max: 99.3 cm/sec Med Peak E' John: 5.2 cm/sec PA V2 mean: 73.9 cm/sec E/E' med: 17.0 PA mean P.4 mmHg Lat Peak E' John: 8.2 cm/sec PA pr(Accel): 10.5 mmHg E/E' lat: 10.8 E/e' average: 13.9 MV dec time: 0.21 sec SV(LVOT): 84.7 ml Reading Physician:JEAN
== END ==
PROVIDERS: PCP Family Medicine; Referring Provider Family Medicine; Visit Provider Family Medicine
DX: R06.00 Dyspnea, unspecified (principal); I70.0 Atherosclerosis of aorta
CPT/HCPCS: 93306

== ENCOUNTER → 2023-02-07 12:06 | Outpatient (CLI) | payer MEDICARE, OTHER, SELFPAY ==
[2019-10-15 14:43] VITALS: BMI 34.3
--- NOTE | 2023-02-07 | DI.RAD.S_ITS ---
PROCEDURE: XR CHEST 2V INDICATIONS: dyspnea on exertion TECHNIQUE: 2 views of the chest were acquired. COMPARISON: [facility], CR, XR CHEST 2V, 01/30/2021, 12:37. FINDINGS: Surgical changes and devices: None. Lungs and pleura: Lungs are clear. No pleural effusions or pneumothorax. Mediastinum: Mediastinal contours are normal. Heart size is normal. Bones and chest wall: No suspicious bony abnormalities. Soft tissues appear unremarkable. IMPRESSION: No acute cardiopulmonary abnormality is seen. Dictated by: Violeta Alexander MD, PhD on 02/07/2023 at 13:30 Approved by: Violeta Alexander MD, PhD on 02/07/2023 at 13:31
== END ==
PROVIDERS: PCP Family Medicine; Referring Provider Family Medicine; Visit Provider Family Medicine
DX: R06.09 Other forms of dyspnea (principal)
CPT/HCPCS: 71046

== ENCOUNTER → 2023-04-24 10:29 | Outpatient (CLI) | payer MEDICARE, OTHER, SELFPAY ==
[2019-10-15 14:43] VITALS: BMI 34.3
--- NOTE | 2023-04-24 10:30 | DI.NM.S_ITS ---
PROCEDURE: NM MARLYN PERF SPECT R&S PHARM Rest and pharmacological stress myocardial perfusion SPECT with gated imaging and ejection fraction RADIOPHARMACEUTICAL: 25.5 mCi Tc-99m tetrafosmin IV at rest and 25.1 mCi Tc-99m tetrafosmin IV at peak effect of pharmacological stress. [id number] was performed. INDICATIONS: Dyspnea on exertion TECHNIQUE: Radiopharmaceutical was injected at peak stress test, and also at rest. SPECT images were obtained. SPECT myocardial perfusion images were displayed in short axis, horizontal long axis, and vertical long axis views. Gated images were reviewed using MOBITRAC software. COMPARISON: None. CARDIAC STRESS: An exercise stress test was attempted. The patient exercised to Jaime protocol for 2:43 however due to significant dyspnea the test was converted to pharmacologic. A pharmacologic stress test was performed under the supervision of an attending staff, using an infusion of regadenoson 0.4 mg IV. Hemodynamic data: There is normal blood pressure and heart rate response to pharmacologic stress. Symptoms: The patient denied anginal chest pain. EKG: No diagnostic changes of ischemia; no ectopy. FINDINGS: Raw data: There is good myocardial uptake of radiotracer. No significant motion artifacts. Left ventricle function: Gated images demonstrate normal left ventricular wall thickening. No segmental wall motion abnormalities. No transient ischemic dilation; TID is 1.06 (normal less than 1.3). Left ventricle resting end diastolic volume is 77 mL. Left ventricle stress ejection fraction is >75%; normal range is above 45%. Myocardial perfusion: There is normal distribution of activity in the right and left ventricular myocardium. No fixed or reversible perfusion defects. IMPRESSION: Low risk study. No evidence of pharmacologic induced ischemia or scar. Normal LV size with hyperdynamic function. Exercise capacity limited due to dyspnea. Dictated by: Amanda Schwartz D.O. on 04/25/2023 at 16:22 Approved by: Amanda Schwartz D.O. on 04/25/2023 at 16:25
== END ==
LOC: NUCM 10:29
PROVIDERS: PCP Family Medicine; Referring Provider Family Medicine; Visit Provider Family Medicine
DX: R06.09 Other forms of dyspnea (principal)
CPT/HCPCS: 78452; 93017; A9502; J2785

== ENCOUNTER → 2023-11-11 14:36 | Outpatient (CLI) | payer MEDICARE, OTHER, SELFPAY ==
[2019-10-15 14:43] VITALS: BMI 34.3
--- NOTE | 2023-11-11 14:38 | DI.RAD.S_ITS ---
PROCEDURE: XR DEXA AXIAL SKELETON INDICATIONS: Asymptomatic menopausal state COMPARISON: [facility], CR, XR DEXA AXIAL SKELETON, 10/27/2018, 13:51. FINDINGS: Lumbar Spine (L1 and L2 excluded due to increased density): Bone mineral density 1.103 g/cm2, T score 0, previously 1.1. Left Forearm: Bone mineral density 1.71 g/cm2, T score 0.621, -1.2. Fracture Risk Calculation (when applicable): Not reported. (T score greater or equal to -1.0 to: NORMAL) (T score from -1.1 to -2.4: OSTEOPENIA) (T score less than or equal to -2.5: OSTEOPOROSIS) IMPRESSION: Osteopenia. Follow-up guidelines as follows: Osteoporosis: Consider a repeat DEXA and Vertebral Fracture Assessment (VFA) exam in 2 years or sooner if medically necessary, to reassess this patient's status. Osteopenia: Consider a repeat DEXA in 2-3 years to reassess this patient's status, or if there is a new clinical indication. Normal: Consider a repeat DEXA in 5 years or sooner, or if there is a new clinical indication. All treatment decisions require clinical judgment and consideration of individual patient factors, including patient preferences, comorbidities, previous drug use, risk factors not captured in the FRAX model (e.g., frailty, falls, vitamin D deficiency, increased bone turnover, interval significant decline in bone density ) and possible under- or over-estimation of fracture risk by FRAX. In addition, the NOF Guide recommends that FDA-approved medical therapies be considered in postmenopausal women and men age >= 50 years with a: * Hip or vertebral (clinical or morphometric) fracture * T-score of <=-2.5 at the spine or hip * Ten-year fracture probability by FRAX of >= 3% for hip fracture or >=20% for major osteoporotic fracture. People with diagnosed cases of osteoporosis or at high risk for fracture should have regular bone mineral density tests. For patients eligible for Medicare, routine testing is allowed once every 2 years. The testing frequency can be increased to one year for patients who have rapidly progressing disease, those who are receiving or discontinuing medical therapy to restore bone mass, or have additional risk factors. Dictated by: Elton Ayala M.D. on 11/11/2023 at 16:15 Approved by: Elton Ayala M.D. on 11/11/2023 at 16:16
== END ==
PROVIDERS: PCP Family Medicine; Referring Provider Family Medicine; Visit Provider Family Medicine
DX: M85.832 Other specified disorders of bone density and structure, left forearm (principal); Z78.0 Asymptomatic menopausal state
CPT/HCPCS: 77080; 77081